=== PATIENT | female | born 1990 | race Caucasian/White ===

== ENCOUNTER 2017-07-10 00:25 | Inpatient (IN) | payer OTHER ==
[~2017-07-10] VITALS: Ht 165.1 cm; Wt 63.5 kg
[2017-07-10 00:33] VITALS: BP 120/75
--- NOTE | 2017-07-10 00:33 | NUR ---
Pt came to ED via EMS for alcohol intoxication. VSS. PT eyes closed and resting in chair. ED staff monitoring. ER aware. Continue to monitor.
[2017-07-10 00:41] VITALS: BP 111/66
--- NOTE | 2017-07-10 01:28 | NUR ---
Pt taken to Chair B. Eyes closed and resting. ER staff monitoring. ER MD aware. Continue to monitor.
[2017-07-10] MEDS ORDERED: ONDANSETRON 4 MG/2 ML VIAL IVP ONE ×2 (01:50→03:40)
[2017-07-10] MEDS ORDERED: MULTIVITAMIN-12 10 ML, THIAMINE 100 MG, MAGNESIUM SULFATE 50% 2,000 MG, FOLIC ACID 5 MG... IV ONE ×5 (01:50)
[2017-07-10] MEDS ORDERED: FOLIC ACID 5 MG/ML SYR ONE (01:56)
[2017-07-10] MEDS ORDERED: MULTIVITAMIN-12 10 ML VIAL IV ONE (01:56)
[2017-07-10] MEDS ORDERED: MAGNESIUM SULFATE 50% 1000 MG/2 ML VIAL IV ONE (01:56)
[2017-07-10] MEDS ORDERED: THIAMINE 200 MG/2 ML VIAL ONE (01:56)
[2017-07-10 02:17] LABS: HEMATOCRIT 43.9 % (36-48); HEMOGLOBIN 14.9 g/dL (12.0-16.0); RED CELL DISTRIBUTION WIDTH 11.7 % (11.6-13.7)
[2017-07-10 02:30] LABS: MEAN CORPUSCULAR HEMOGLOBIN 32 pg (27-31); MEAN CORPUSCULAR HGB CONC 34 g/dL (33-37); MEAN CORPUSCULAR VOLUME 93 fL (80-94); PLATELET COUNT (AUTO) 228 K/uL (140-450); RED BLOOD CELL COUNT(AUTO) 4.72 MIL/uL (4.20-5.40); WHITE BLOOD COUNT (AUTO) 9.9 K/uL (4.8-10.8)
--- NOTE | 2017-07-10 02:31 | NUR ---
TALKED TO PT MADE AWARE NEED URINE, URINE BOTTLE AT BEDSIDE, PER PT SHE WILL CALL NURSE WHEN SHE NEED TO GO TO THE BATHROOM
[2017-07-10 02:54] LABS: ALBUMIN 4.2 g/dL (3.4-5.0); CARBON DIOXIDE 23.6 mmol/L (21-32); CREATININE 0.8 mg/dL (0.6-1.3); POTASSIUM 3.6 mmol/L (3.5-5.1); TOTAL BILIRUBIN 0.3 mg/dL (0.0-1.0)
[2017-07-10 03:07] LABS: LYMPHOCYTES % (MANUAL) 11 % (20-46); MONOCYTES % (MANUAL) 1 % (5-12)
--- NOTE | 2017-07-10 03:30 | NUR ---
Pt in chair in POC, VSS, Continue to monitor.
[2017-07-10] MEDS ORDERED: MORPHINE SULFATE 4 MG/ML SYR IVP ONE (03:40)
[2017-07-10] MEDS ORDERED: NACL 0.9% 1,000 ML IV ONE (03:40)
[2017-07-10] MEDS ORDERED: NACL 0.9% 1,000 ML IV SCH (03:53)
[2017-07-10] MEDS ORDERED: MORPHINE SULFATE 2 MG/ML SYR IVP PRN (03:55)
[2017-07-10] MEDS ORDERED: ONDANSETRON 4 MG/2 ML VIAL IM/IVP PRN (03:55)
[2017-07-10] MEDS ORDERED: ACETAMINOPHEN 325 MG TAB PO PRN (03:55)
[2017-07-10] MEDS ORDERED: HYDROcodone/APAP 7.5/325 MG 1 TAB PO PRN (03:55)
[2017-07-10] MEDS ORDERED: DOCUSATE SODIUM 100 MG GELCAP PO PRN (03:55)
[2017-07-10 04:10] LABS: PROTHROMBIN TIME 11.1 secs (10.8-13.4)
[2017-07-10 04:22] LABS: CHOL/HDL RATIO 3.6 (1-4.5); FREE T4 (FREE THYROXINE) 0.89 ng/dL (0.76-1.46); PHOSPHORUS 3.7 mg/dL (2.5-4.9); THYROID STIMULATING HORMONE 1.32 uIU/mL (0.34-3.74)
[2017-07-10 04:22] LABS: APPEARANCE,URINE SL CLOUDY (CLEAR); BILIRUBIN,URINE NEGATIVE (NEGATIVE); BLOOD, URINE TRACE-I (NEGATIVE); COLOR,URINE YELLOW (YELLOW); LEUKOCYTE ESTERASE ,URINE NEGATIVE (NEGATIVE); NITRITE, URINE NEGATIVE (NEGATIVE); PH,URINE 5.5 (5.0-9.0); UGLUCOSE NEGATIVE (NEGATIVE)
[2017-07-10 04:28] LABS: BARBITURATE, URINE NEG. ng/ml (NEG <=200); BENZODIAZEPINE, URINE NEG. ng/mL (NEG <=200); CANNABINOID, URINE POS. ng/mL (NEG <=50); COCAINE, URINE NEG. ng/mL (NEG <=300); OPIATE, URINE NEG. ng/mL (NEG <=2000); PHENCYCLIDINE SCREEN,URINE NEG. ng/mL (NEG <=25)
--- NOTE | 2017-07-10 04:30 | NUR ---
Pt in chair in POC, VSS, Continue to monitor.
[2017-07-10] MEDS ORDERED: DEXT 5% / NACL 0.45% 1,000 ML IV SCH (04:47)
[2017-07-10] MEDS ORDERED: ONDANSETRON 4 MG/2 ML VIAL IVP PRN (04:50)
[2017-07-10] MEDS ORDERED: MORPHINE SULFATE 4 MG/ML SYR IVP PRN ×2 (04:50)
[2017-07-10 04:52] LABS: RBC,URINE 0-5 (RARE) /HPF (0-5); WBC,URINE 0-5 (RARE) /HPF (0-5)
--- NOTE | 2017-07-10 05:00 | NUR ---
Pt escored to floor via wheel chair by Yunior LEES. PT vss.
--- NOTE | 2017-07-10 05:08 | NUR ---
Report given and care transfered to Beulah RN, room 124A
[2017-07-10 05:15] VITALS: BP 97/58
--- NOTE | 2017-07-10 05:30 | NUR ---
RECEIVED PT FROM ER VIA JAZMINE PAT IS AAOX4 COOPERATIVE HL ON LEFT HAND GAUGE # 20 DENIES ANY PAIN AT THIS TIME PAIN MEDIC WAS GIVEN IN ER, KIANA ADAM PROTOCOL TAKEN AND SENT TO LAB, PT IS ORIENTED TO THE FLOOR CALL LIGHT WITHIN REACH
--- NOTE | 2017-07-10 06:43 | NUR ---
PT SLEEPING NOT SIGNS OF PAIN WILL BE ENDORSED TO DAY SHIF NURSE TO CONTINUITY PLAN OF CARE
--- NOTE | 2017-07-10 07:25 | NUR ---
RECEIVED REPORT FROM WEATHERIZATION CREW LEADER NURSE FRACISCO AT BEDSIDE FOR CONTINUITY OF CARE. PT IS ASLEEP NOW, NO SIGNS OF DISTRESS. WILL CONTINUE TO MONITOR.
[2017-07-10 08:00] VITALS: BP 103/63
--- NOTE | 2017-07-10 08:38 | NUR ---
PATIENT HAS BEEN SCREENED AND CATEGORIZED MODERATE NUTRITION RISK. PATIENT WILL BE SEEN WITHIN 3-5 DAYS OF ADMISSION. 07/12/17-07/14/[address]
--- NOTE | 2017-07-10 11:15 | NUR ---
CM NOTE INITIAL REVIEW FAXED TO [facility] [phone] JCARLOS # [phone]
--- NOTE | 2017-07-10 13:00 | NUR ---
PT SIGNED AMA. GAVE RISKS OF AMA AND BENEFITS FOR STAYING. PT STATED "I WANT TO GO HOME NOW, I DON'T HAVE TO BE HERE. I WILL CALL MY PRIMARY WHEN I GO HOME." D/C IV FROM L HAND 20G. IV CATHETER TIP INTACT. APPLIED PRESSURE AND DRESSING TO SITE. NO BLEEDING NOTED. REMOVED ID BAND. PT CHANGED IN OWN CLOTHES AND LEFT WITH ALL PERSONAL BELONGINGS. LEFT AMA AND AMBULATED OUT OF HOSPITAL.
[2017-07-11 06:16] LABS: T4 (THYROXINE) 7.2 ug/dL (4.5-12.0)
== END 2017-07-10 13:00 | disposition left against medical advice (07) | DRG 282 ==
LOC: MED 00:25 → MTU 04:50
PROVIDERS: ADMIT Hospitalist; ATTEND Hospitalist
DX: K85.90 Acute pancreatitis without necrosis or infection, unspecified (principal); F10.10 Alcohol abuse, uncomplicated; F12.90 Cannabis use, unspecified, uncomplicated; Y90.9 Presence of alcohol in blood, level not specified; Z53.21 Procedure and treatment not carried out due to patient leaving prior to being seen by health care provider
CPT/HCPCS: 36415; 76700; 80053; 80305; 81001; 82150; 83036; 83690; 83735; 83880; 84100; 84436; 84439; 84443; 84479; 84484; 84703; 85025; 85610; 85730; 87081; 96361; 96365; 96375; 99285; A9153; G0482; J2270; J2405; J3411; J3475; J3490; J7030; Q0092